=== PATIENT | female | born 1950 | race Caucasian/White ===

== ENCOUNTER 2016-08-21 21:25 | Emergency (ER) | payer MEDICARE, OTHER | END 2016-08-21 23:52 | disposition home or self-care (01) | LOC: ER 21:25 | DX: T78.40XA Allergy, unspecified, initial encounter (principal); R21 Rash and other nonspecific skin eruption; R11.0 Nausea; L56.8 Other specified acute skin changes due to ultraviolet radiation; Z79.899 Other long term (current) drug therapy; Z88.6 Allergy status to analgesic agent ==